=== PATIENT | male | born 1995 | race African-American/Black ===

== ENCOUNTER 2020-10-16 14:31 | Emergency (ER) | payer OTHER ==
[~2020-10-16] VITALS: Ht 180.3 cm; Wt 72.7 kg
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
[2020-10-16] MEDS ORDERED: NAPR-514 PO (16:36)
[2020-10-16] MEDS ORDERED: CYCL10TA2 PO (16:36)
[2020-10-16 16:40] VITALS: BP 134/74
== END 2020-10-16 17:07 | disposition home or self-care (01) ==
LOC: ER 14:31
DX: S13.9XXA Sprain of joints and ligaments of unspecified parts of neck, initial encounter (principal); M54.5 Low back pain; M54.6 Pain in thoracic spine; Z88.0 Allergy status to penicillin; V49.49XA Driver injured in collision with other motor vehicles in traffic accident, initial encounter; Y93.89 Activity, other specified; Y92.488 Other paved roadways as the place of occurrence of the external cause; Y99.8 Other external cause status
CPT/HCPCS: 72072; 72100; 72125; 99285-25